=== PATIENT | male | born 1995 | race American Indian/Alaskan Native ===

== ENCOUNTER 2020-10-26 16:35 | Emergency (ER) | payer SELFPAY ==
[2020-10-26 18:38] VITALS: BP 125/84
--- NOTE | 2020-10-26 18:55 | Emergency Department Report ---
ED Male HPI - General Chief complaint: Urogenital-Male Stated complaint: PAIN IN THE GROIN AREA Time Seen by Provider: 10/26/20 18:39 Source: patient Mode of arrival: Ambulatory Limitations: No Limitations - History of Present Illness Initial comments: Patient is a 26-year-old male presents emergency room complaints of bilateral testicular discomfort for a week. Patient reports that his partner tested positive for trichomonas. He denies any penile discharge, dysuria, urinary retention, hematuria, fever, vomiting, testicular swelling, abdominal pain. No past medical history. No allergies to medications. - Related Data Previous Rx's Medication Instructions Recorded Last Taken Type Doxycycline Hyclate [Doxycycline 100 mg PO BID 7 Days #14 tab 10/26/20 Unknown Rx Hyclate TAB] metroNIDAZOLE [Flagyl] 500 mg PO BID 7 Days #14 tab 10/26/20 Unknown Rx Allergies Allergy/AdvReac Type Severity Reaction Status Date / Time No Known Allergies Allergy Unverified 10/26/20 18:34 ED Review of Systems ROS: Stated complaint: PAIN IN THE GROIN AREA Other details as noted in HPI Comment: All other systems reviewed and negative ED Past Medical Hx - Past Medical History Previous Medical History?: No - Surgical History Past Surgical History?: No - Medications Home Medications: Home Medications Medication Instructions Recorded Confirmed Last Taken Type Doxycycline Hyclate [Doxycycline 100 mg PO BID 7 Days #14 tab 10/26/20 Unknown Rx Hyclate TAB] metroNIDAZOLE [Flagyl] 500 mg PO BID 7 Days #14 tab 10/26/20 Unknown Rx ED Physical Exam - General Limitations: No Limitations General appearance: alert, in no apparent distress - Head Head exam: Present: atraumatic, normocephalic - Eye Eye exam: Present: normal appearance - ENT ENT exam: Present: mucous membranes moist - Respiratory Respiratory exam: Absent: respiratory distress, accessory muscle use - GI/Abdominal GI/Abdominal exam: Present: soft. 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 Absent: testicular tenderness, urethral discharge, scrotal swelling External exam: Present: normal external exam. Absent: erythema, swelling, lesions, lacerations, ecchymosis, bleeding - Neurological Exam Neurological exam: Present: alert, oriented X3 - Psychiatric Psychiatric exam: Present: normal affect, normal mood - Skin Skin exam: Present: warm, dry, intact ED Course Vital Signs 10/26/20 18:38 Temperature 99 F Pulse Rate 89 Respiratory 20 Rate Blood Pressure 125/84 [Right] O2 Sat by Pulse 100 Oximetry - Consultations Consultation #1: 10/26/20 18:[address]. Sánchez, ER attending who advised to order UA and testicular ultrasound ED Medical Decision Making - Radiology Data Radiology results: report reviewed Ordering Physician: LAYLA ZIMMERMAN Date of Service: 10/26/20 Procedure(s): US testicular doppler comp Accession Number(s): [id number] cc: LAYLA ZIMMERMAN ULTRASOUND SCROTUM INDICATION / CLINICAL INFORMATION: bilateral testicular pain. COMPARISON: None available. FINDINGS -- RIGHT TESTIS: Size = 3 cm. - Appearance: No significant abnormality. - Cyst or Mass: None. - Color Doppler Flow: No significant abnormality. EPIDIDYMIS: No significant abnormality. HYDROCELE: None. VARICOCELE: None demonstrated. FINDINGS -- LEFT TESTIS: Size = 3.3 cm. - Appearance: No significant abnormality. - Cyst or Mass: None. - Color Doppler Flow: No significant abnormality. EPIDIDYMIS: No significant abnormality. HYDROCELE: Small to moderate VARICOCELE: None demonstrated. ADDITIONAL FINDINGS: None. IMPRESSION: Nonspecific small to moderate left hydrocele. No evidence of testicular torsion or significant inflammation of the testicle or epididymis. Signer Name: Andrew Reece MD Signed: 10/26/2020 8:48 PM Workstation Name: [id number] Transcribed By: JS Dictated By: ANDREW REECE MD Electronically Authenticated By: ANDREW REECE MD Signed Date/Time: 10/26/202047 DD/ 44 TD/TT: - Medical Decision Making Patient is a 26-year-old male presents emergency room complaints of bilateral testicular discomfort for a week. Patient reports that his partner tested positive for trichomonas. He denies any penile discharge, dysuria, urinary retention, hematuria, fever, vomiting, testicular swelling, abdominal pain. No past medical history. No allergies to medications. Vitals are normal. Ultrasound testicular: Nonspecific small to moderate left hydrocele. No evidence of testicular torsion or significant inflammation of the testicle or epididymis. UA is within normal limits. Patient given ceftriaxone IM on the emergency department. Patient given prescription for doxycycline and Flagyl. Advised patient Please take medication as prescribed. Follow-up with a urologist. Follow-up with the clinic or the health department or to receive a full STD panel. Please have any partner tested and treated as well. Avoid sexual intercourse. Return to emergency room for new or worsening symptoms. Critical care attestation.: If time is entered above; I have spent that time in minutes in the direct care of this critically ill patient, excluding procedure time. ED Disposition Clinical Impression: Exposure to trichomonas Testicular pain Qualifiers: Laterality: bilateral Qualified Code(s): N50.811 - Right testicular pain Hydrocele Qualifiers: Hydrocele type: unspecified Qualified Code(s): N43.3 - Hydrocele, unspecified Disposition: TO HOME OR SELFCARE Is pt being admited?: No Does the pt Need Aspirin: No Condition: Stable Instructions: Hydrocele, Adult, Safe Sex Additional Instructions: Please take medication as prescribed. Follow-up with a urologist. Follow-up with the clinic or the health department or to receive a full STD panel. Please have any partner tested and treated as well. Avoid sexual intercourse. Return to emergency room for new or worsening symptoms. walk in clinic: [facility] Address: [address] [place] [id number] Prescriptions: Doxycycline Hyclate [Doxycycline Hyclate TAB] 100 mg PO BID 7 Days #14 tab metroNIDAZOLE [Flagyl] 500 mg PO BID 7 Days #14 tab Referrals: [facility] [Outside] - 2-3 Days CAROLINE MASSEY MD [Staff Physician] - 2-3 Days Time of Disposition: 20:58 Print Language: BELARUSIAN
[2020-10-26 19:16] LABS: Bilirubin,Urine NEG (Negative); Blood,Urine NEG (Negative); Color,Urine Yellow (Yellow); Mucus,Urine 1+ /HPF; Protein,Urine <15 mg/dL mg/dL (Negative); Urobilinogen,Urine < 2.0 mg/dL (<2.0); WBC,Urine < 1.0 /HPF (0.0-6.0)
[2020-10-26] MEDS ORDERED: LIDOCAINE-MPF (1%) 10 MG/1 ML VIAL 5 ML INFILTRATI ONE (20:49)
--- NOTE | 2020-10-26 20:52 | Ultrasound Report ---
ULTRASOUND SCROTUM INDICATION / CLINICAL INFORMATION: bilateral testicular pain. COMPARISON: None available. FINDINGS -- RIGHT TESTIS: Size = 3 cm. - Appearance: No significant abnormality. - Cyst or Mass: None. - Color Doppler Flow: No significant abnormality. EPIDIDYMIS: No significant abnormality. HYDROCELE: None. VARICOCELE: None demonstrated. FINDINGS -- LEFT TESTIS: Size = 3.3 cm. - Appearance: No significant abnormality. - Cyst or Mass: None. - Color Doppler Flow: No significant abnormality. EPIDIDYMIS: No significant abnormality. HYDROCELE: Small to moderate VARICOCELE: None demonstrated. ADDITIONAL FINDINGS: None. IMPRESSION: Nonspecific small to moderate left hydrocele. No evidence of testicular torsion or significant inflam mation of the testicle or epididymis. Signer Name: Cy Reece MD Signed: 10/26/2020 8:48 PM Workstation Name: [id number]
== END 2020-10-26 21:21 | disposition home or self-care (01) ==
LOC: ED 16:35
DX: N50.811 Right testicular pain (principal); N43.3 Hydrocele, unspecified; Z20.2 Contact with and (suspected) exposure to infections with a predominantly sexual mode of transmission; Z79.899 Other long term (current) drug therapy
CPT/HCPCS: 81001; 93975; 96372; 99284; J0696